=== PATIENT | male | born 1990 | race Caucasian/White ===

== ENCOUNTER 2016-12-03 17:38 | Emergency (ER) | payer OTHER ==
[~2016-12-03] VITALS: Ht 170.2 cm; Wt 88.5 kg
[2016-12-03] MEDS ORDERED: ASPIRIN 325 MG TABLET ONE (18:16)
[2016-12-03] MEDS ORDERED: OLANZAPINE 5 MG/TAB.RAPDIS ONE (18:16)
[2016-12-03 18:29] LABS: BASOPHILS % (AUTO) 0.6 % (0.0-2.0); DIFF TOTAL % 100 %; HEMATOCRIT 48 % (39-51); HEMOGLOBIN 16.4 g/dL (13.5-17.5); LYMPHOCYTES # (AUTO) 0.6 /CMM (0.8-4.8); MEAN CORPUSCULAR HEMOGLOBIN 32 PG (26.0-33.0); MEAN CORPUSCULAR HGB CONC 35 g/dl (31.0-36.0); MEAN CORPUSCULAR VOLUME 92 fL (80-96); MONOCYTES # (AUTO) 0.9 /CMM (0.1-1.30); MONOCYTES % (AUTO) 11.2 % (2.0-12.0); NEUTROPHILS # (AUTO) 6.2 /CMM (1.8-8.9); NEUTROPHILS % (AUTO) 80.2 % (43.0-81.0); PLATELET COUNT (AUTO) 208 /CMM (150-450); RED BLOOD CELL COUNT(AUTO) 5.18 MIL/uL (4.5-6.0); WHITE BLOOD COUNT (AUTO) 7.7 K/uL (4.3-11.0)
[2016-12-03] MEDS ORDERED: ASPIRIN 325 MG TABLET PO ONE (18:30)
[2016-12-03] MEDS ORDERED: OLANZAPINE 5 MG/TAB.RAPDIS PO ONE (18:30)
[2016-12-03 18:45] LABS: ANION GAP 12 (5-14); CALCIUM, SERUM 9.5 mg/dL (8.5-10.1); CARBON DIOXIDE 30 mmol/L (21-32); CHLORIDE 105 mmol/L (98-107); CREATININE 0.9 mg/dL (0.6-1.3); GFR 102 mL/min (>60); GLUCOSE 122 mg/dL (74-106); POTASSIUM 4.4 mmol/L (3.5-5.1); SODIUM SERUM 143 mmol/L (136-145); UREA NITROGEN, BLOOD 9 mg/dL (7-18)
[2016-12-03 18:47] LABS: TROPONIN I < 0.017 ng/mL (0.00-0.056)
[2016-12-03 18:50] LABS: ALANINE AMINOTRANSFERASE 39 U/L (12-78); ALBUMIN 4.5 g/dL (3.4-5.0); ASPARTATE AMINOTRANSFERASE 21 U/L (15-37); BILIRUBIN,DIRECT 0.2 mg/dL (0.0-0.2); BILIRUBIN,TOTAL 1.1 mg/dL (0.2-1.0); INDIRECT BILIRUBIN 0.9 mg/dL (0.0-1.1); TOTAL PROTEIN, SERUM 8.6 g/dL (6.4-8.2)
[2016-12-03 18:52] LABS: ACETAMINOPHEN < 2 ug/ml (10-30)
[2016-12-03 18:53] LABS: THYROID STIMULATING HORMONE 0.965 uIU/mL (0.358-3.74)
[2016-12-03] MEDS ORDERED: DIAZEPAM 5 MG TABLET ONE (18:54)
[2016-12-03] MEDS ORDERED: DIAZEPAM 10 MG TABLET PO ONE (19:00)
[2016-12-03 19:31] LABS: VALPROIC ACID 36 ug/mL (50-100)
[2016-12-03] MEDS ORDERED: LORAZEPAM INJ 2 MG/ML VIAL ONE (20:13)
[2016-12-03] MEDS ORDERED: LORAZEPAM INJ 2 MG/ML VIAL IM ONE (21:00)
[2016-12-03 21:02] VITALS: BP 142/84
== END 2016-12-03 21:03 | disposition home or self-care (01) ==
LOC: ER 17:40
DX: R07.9 Chest pain, unspecified (principal); F29 Unspecified psychosis not due to a substance or known physiological condition; F32.9 Major depressive disorder, single episode, unspecified; F20.0 Paranoid schizophrenia; R44.0 Auditory hallucinations
CPT/HCPCS: 36415; 71010; 80048; 80076; 80164; 84443; 84484; 85025; 93005; 96372; 99285; A4606; G0480 ×2; J2060; Z7610; G6039-TC

== ENCOUNTER 2016-12-05 04:45 | Emergency (ER) | payer OTHER ==
[~2016-12-05] VITALS: Ht 182.9 cm; Wt 110.7 kg
[2016-12-05] MEDS ORDERED: OLANZAPINE 10 MG VIAL IM ONE ×2 (05:05→05:30)
[2016-12-05] MEDS ORDERED: WATER FOR INJECTION,STERILE 10 ML ONE (05:06)
[2016-12-05] MEDS ORDERED: LORAZEPAM INJ 2 MG/ML VIAL ONE (05:30)
[2016-12-05 05:59] LABS: BASOPHILS % (AUTO) 0.2 % (0.0-2.0); DIFF TOTAL % 100 %; EOSINOPHILS % (AUTO) 0.1 % (0.0-6.0); HEMATOCRIT 45 % (39-51); HEMOGLOBIN 15.4 g/dL (13.5-17.5); LYMPHOCYTES % (AUTO) 11.4 % (20.0-44.0); MEAN CORPUSCULAR HEMOGLOBIN 32 PG (26.0-33.0); MEAN CORPUSCULAR HGB CONC 34 g/dl (31.0-36.0); MEAN CORPUSCULAR VOLUME 92 fL (80-96); MONOCYTES % (AUTO) 11.1 % (2.0-12.0); NEUTROPHILS # (AUTO) 6.9 /CMM (1.8-8.9); NEUTROPHILS % (AUTO) 77.2 % (43.0-81.0); PLATELET COUNT (AUTO) 186 /CMM (150-450); RED BLOOD CELL COUNT(AUTO) 4.88 MIL/uL (4.5-6.0); WHITE BLOOD COUNT (AUTO) 8.9 K/uL (4.3-11.0)
[2016-12-05] MEDS ORDERED: LORAZEPAM INJ 2 MG/ML VIAL IM ONE (06:00)
[2016-12-05 06:07] LABS: ANION GAP 10 (5-14); CALCIUM, SERUM 8.8 mg/dL (8.5-10.1); CARBON DIOXIDE 30 mmol/L (21-32); CHLORIDE 108 mmol/L (98-107); CREATININE 0.9 mg/dL (0.6-1.3); GFR 102 mL/min (>60); GLUCOSE 94 mg/dL (74-106); POTASSIUM 3.9 mmol/L (3.5-5.1); SODIUM SERUM 144 mmol/L (136-145); UREA NITROGEN, BLOOD 16 mg/dL (7-18)
[2016-12-05 06:14] LABS: ALANINE AMINOTRANSFERASE 40 U/L (12-78); ALBUMIN 4.2 g/dL (3.4-5.0); ASPARTATE AMINOTRANSFERASE 32 U/L (15-37); BILIRUBIN,DIRECT 0.2 mg/dL (0.0-0.2); INDIRECT BILIRUBIN 0.8 mg/dL (0.0-1.1); TOTAL PROTEIN, SERUM 7.9 g/dL (6.4-8.2)
[2016-12-05 06:16] LABS: ACETAMINOPHEN 0 ug/ml (10-30); SALICYLATE 0.3 mg/dL (2.8-20.0)
[2016-12-05 07:32] LABS: KETONES,URINE NEGATIVE (NEGATIVE); LEUKOCYTE ESTERASE ,URINE NEGATIVE (NEGATIVE); PH,URINE 6.5 (5.0-8.0)
[2016-12-05 07:38] LABS: ADD UA MICROSCOPIC NO
[2016-12-05 07:44] LABS: CANNABINOID, URINE NEGATIVE (NEGATIVE); PHENCYCLIDINE SCREEN,URINE NEGATIVE (NEGATIVE)
[2016-12-05] MEDS ORDERED: VALPROIC ACID 250 MG/5 ML UDC PO ONE (10:00)
[2016-12-05] MEDS ORDERED: risperiDONE LIQUID 1 MG/ML ML PO ONE (10:00)
[2016-12-05] MEDS ORDERED: VALPROIC ACID 250 MG/5 ML UDC ONE (10:01)
[2016-12-05] MEDS ORDERED: risperiDONE 1 MG TABLET ONE (10:01)
[2016-12-05 13:48] VITALS: BP 118/70
== END 2016-12-05 14:01 ==
LOC: ER 04:47
DX: R45.1 Restlessness and agitation (principal); F20.0 Paranoid schizophrenia; Z91.14 Patient's other noncompliance with medication regimen
CPT/HCPCS: 36415; 80048; 80076; 80305; 80329; 81001; 85025; 96372 ×2; 99285; G0480 ×2; J2060; J3490; 81000-TC; G6039-TC

== ENCOUNTER 2016-12-10 02:02 | Emergency (ER) | payer OTHER ==
[~2016-12-10] VITALS: Ht 177.8 cm; Wt 104.3 kg
[2016-12-10 02:08] VITALS: BP 141/60
[2016-12-10] MEDS ORDERED: OLANZAPINE 10 MG VIAL IM ONE ×3 (02:18→02:30)
--- NOTE | 2016-12-10 02:28 | NUR ---
medicated pt as ordered
== END 2016-12-10 03:03 | disposition home or self-care (01) ==
LOC: ER 02:05
DX: R45.1 Restlessness and agitation (principal); F20.0 Paranoid schizophrenia
CPT/HCPCS: A4606; J3490; Z7610

== ENCOUNTER 2017-03-13 22:33 | Emergency (ER) | payer OTHER ==
[~2017-03-13] VITALS: Ht 172.7 cm; Wt 81.6 kg
[2017-03-13 23:45] VITALS: BP 139/72
--- NOTE | 2017-03-14 01:58 | NUR ---
NOT IN LOBBY WHEN CALLED FOR ROOM ASSIGNMENT
--- NOTE | 2017-03-14 02:28 | NUR ---
STILL NOT IN LOBBY.
== END 2017-03-14 02:29 | disposition left against medical advice (07) ==
LOC: ER 22:37
DX: Z53.21 Procedure and treatment not carried out due to patient leaving prior to being seen by health care provider (principal)
CPT/HCPCS: A4606; Z7610

== ENCOUNTER 2017-03-14 22:13 | Emergency (ER) | payer OTHER ==
[~2017-03-14] VITALS: Ht 182.9 cm; Wt 90.7 kg
[2017-03-14 22:20] VITALS: BP 128/67
== END 2017-03-14 22:54 | disposition home or self-care (01) ==
LOC: ER 22:16
DX: J02.0 Streptococcal pharyngitis (principal); F41.9 Anxiety disorder, unspecified; F20.9 Schizophrenia, unspecified
CPT/HCPCS: 99283; A4606; Z7610

== ENCOUNTER 2017-03-19 22:36 | Emergency (ER) | payer OTHER ==
[~2017-03-19] VITALS: Ht 175.3 cm; Wt 90.7 kg
[2017-03-19 23:07] VITALS: BP 121/73
--- NOTE | 2017-03-19 23:19 | NUR ---
TIAN ALPINE GUIDE AT BEDSIDE TO JESSI TSANG.
== END 2017-03-19 23:40 | disposition home or self-care (01) ==
LOC: ER 22:36
DX: J32.9 Chronic sinusitis, unspecified (principal); F20.0 Paranoid schizophrenia; F41.9 Anxiety disorder, unspecified
CPT/HCPCS: A4606; Z7502; Z7610

== ENCOUNTER 2017-06-23 21:12 | Emergency (ER) | payer OTHER ==
[~2017-06-23] VITALS: Ht 182.9 cm; Wt 90.7 kg
--- NOTE | 2017-06-23 22:00 | NUR ---
TO BED 8 A 27 YO MALE PT STATES HE IS HEARING VOICES AND THE VOICES ARE TELLING HIM HIS FAMILY DOESNT LOVE HIM AND CANT STOP CRYING. PATIENT DENIES SI/HI. ALERT RESPONSIVE. VSS. NAD NOTED. BREATHING EVEN AND UNLABORED. SAFETY AND COMFORT MEASURES IN PLACE. PARENTS AT BEDSIDE.
[2017-06-23 22:20] LABS: BASOPHILS # (AUTO) 0.1 /CMM (0.0-0.2); BASOPHILS % (AUTO) 0.6 % (0.0-2.0); EOSINOPHILS % (AUTO) 0.1 % (0.0-6.0); HEMATOCRIT 49 % (39-51); HEMOGLOBIN 16.7 g/dL (13.5-17.5); LYMPHOCYTES # (AUTO) 1.2 /CMM (0.8-4.8); LYMPHOCYTES % (AUTO) 12.5 % (20.0-44.0); MEAN CORPUSCULAR HEMOGLOBIN 31 PG (26.0-33.0); MEAN CORPUSCULAR HGB CONC 34 g/dl (31.0-36.0); MEAN CORPUSCULAR VOLUME 91 fL (80-96); MONOCYTES % (AUTO) 10.9 % (2.0-12.0); NEUTROPHILS % (AUTO) 75.9 % (43.0-81.0); PLATELET COUNT (AUTO) 207 /CMM (150-450); RDW COEFFICIENT OF VARIATION 13.1 (11.5-15.0); RED BLOOD CELL COUNT(AUTO) 5.36 MIL/uL (4.5-6.0); WHITE BLOOD COUNT (AUTO) 9.2 K/uL (4.3-11.0)
[2017-06-23 22:25] LABS: CARBON DIOXIDE 25 mmol/L (21-32); CHLORIDE 103 mmol/L (98-107); CREATININE 0.8 mg/dL (0.6-1.3); GLUCOSE 115 mg/dL (74-106); POTASSIUM 3.5 mmol/L (3.5-5.1); SODIUM SERUM 135 mmol/L (136-145); UREA NITROGEN, BLOOD 13 mg/dL (7-18)
[2017-06-23 22:36] LABS: ALANINE AMINOTRANSFERASE 48 U/L (12-78); ALBUMIN 4.3 g/dL (3.4-5.0); ALCOHOL, BLOOD < 3 mg/dL (0-0); ALKALINE PHOSPHATASE 75 U/L (46-116); ASPARTATE AMINOTRANSFERASE 23 U/L (15-37); BILIRUBIN,DIRECT 0.1 mg/dL (0.0-0.2); BILIRUBIN,TOTAL 0.6 mg/dL (0.2-1.0); TOTAL PROTEIN, SERUM 8.3 g/dL (6.4-8.2)
[2017-06-23 22:37] LABS: ACETAMINOPHEN 0 ug/ml (10-30); SALICYLATE < 0.2 mg/dL (2.8-20.0)
--- NOTE | 2017-06-24 01:00 | NUR ---
[facility] COLLECTED VIA CLEAN CATCH AND CALLED LAB FOR DIRECTOR CLINICAL DATA.
[2017-06-24 01:09] LABS: APPEARANCE,URINE CLEAR (CLEAR); BILIRUBIN,URINE NEGATIVE (NEGATIVE); BLOOD, URINE NEGATIVE Ery/uL (NEGATIVE); COLOR,URINE YELLOW (YELLOW); KETONES,URINE NEGATIVE (NEGATIVE); LEUKOCYTE ESTERASE ,URINE NEGATIVE (NEGATIVE); NITRITE, URINE NEGATIVE (NEGATIVE); PROTEIN,URINE NEGATIVE (NEGATIVE); UGLUCOSE NEGATIVE (NEGATIVE); UROBILINOGEN,URINE 0.2 EU/dL (0.2)
--- NOTE | 2017-06-24 01:39 | NUR ---
SABRINA ARREDONDO LCSW CALLED FOR EVAL.
--- NOTE | 2017-06-24 02:20 | NUR ---
ART CAPILLA, LOGISTICS SYSTEM ENGINEER, AT BEDSIDE TO EVALUATE PATIENT.
--- NOTE | 2017-06-24 02:40 | NUR ---
Patient discharged to home in stable condition. Written and verbal after care instructions given. Patient verbalizes understanding of instruction. Patient is ambulatory with steady gait, accompanied by family. No further complaints.
[2017-06-24 02:42] VITALS: BP 128/74
== END 2017-06-24 02:42 | disposition home or self-care (01) ==
LOC: ER 21:16
DX: F20.0 Paranoid schizophrenia (principal); F39 Unspecified mood [affective] disorder; F41.9 Anxiety disorder, unspecified
CPT/HCPCS: 36415; 80048-TC; 80076-TC; 80305; 81000-TC; 85025-TC; A4606; G0480; Z7610

== ENCOUNTER 2017-07-09 13:01 | Emergency (ER) | payer OTHER ==
[~2017-07-09] VITALS: Ht 170.2 cm; Wt 120.7 kg
--- NOTE | 2017-07-09 13:10 | NUR ---
BIB RA102 FROM HOME C/O NAUSEA SINCE AM. PATIENT ALERT, BREATHING EVEN AND UNLABORED. NO SOB. VITALS STABLE. SAFETY AND COMFORT MEASURES IN PLACE. AWAITING MD ORDERS.
[2017-07-09] MEDS ORDERED: ONDANSETRON 4 MG TAB.RAPDIS ONE (13:13)
--- NOTE | 2017-07-09 13:15 | NUR ---
patient medicated per md orders.
[2017-07-09] MEDS ORDERED: ONDANSETRON 4 MG TAB.RAPDIS SL ONE (13:30)
[2017-07-09 13:42] LABS: EOSINOPHILS % (AUTO) 0.5 % (0.0-6.0); HEMATOCRIT 47 % (39-51); HEMOGLOBIN 15.9 g/dL (13.5-17.5); LYMPHOCYTES # (AUTO) 0.7 /CMM (0.8-4.8); LYMPHOCYTES % (AUTO) 8.1 % (20.0-44.0); MEAN CORPUSCULAR HEMOGLOBIN 31 PG (26.0-33.0); MEAN CORPUSCULAR HGB CONC 34 g/dl (31.0-36.0); MEAN CORPUSCULAR VOLUME 92 fL (80-96); MONOCYTES # (AUTO) 0.5 /CMM (0.1-1.30); MONOCYTES % (AUTO) 6.3 % (2.0-12.0); NEUTROPHILS # (AUTO) 7.3 /CMM (1.8-8.9); NEUTROPHILS % (AUTO) 85.1 % (43.0-81.0); PLATELET COUNT (AUTO) 182 /CMM (150-450); RDW COEFFICIENT OF VARIATION 13.2 (11.5-15.0); RED BLOOD CELL COUNT(AUTO) 5.15 MIL/uL (4.5-6.0); WHITE BLOOD COUNT (AUTO) 8.6 K/uL (4.3-11.0)
[2017-07-09 13:52] LABS: CALCIUM, SERUM 8.7 mg/dL (8.5-10.1); CARBON DIOXIDE 26 mmol/L (21-32); CHLORIDE 105 mmol/L (98-107); CREATININE 0.8 mg/dL (0.6-1.3); GLUCOSE 135 mg/dL (74-106); POTASSIUM 3.9 mmol/L (3.5-5.1); SODIUM SERUM 138 mmol/L (136-145); UREA NITROGEN, BLOOD 14 mg/dL (7-18)
[2017-07-09 13:58] LABS: ALANINE AMINOTRANSFERASE 52 U/L (12-78); ALBUMIN 3.9 g/dL (3.4-5.0); ALCOHOL, BLOOD < 3 mg/dL (0-0); ALKALINE PHOSPHATASE 73 U/L (46-116); ASPARTATE AMINOTRANSFERASE 24 U/L (15-37); BILIRUBIN,DIRECT 0.1 mg/dL (0.0-0.2); BILIRUBIN,TOTAL 0.6 mg/dL (0.2-1.0); TOTAL PROTEIN, SERUM 7.7 g/dL (6.4-8.2)
[2017-07-09 13:59] LABS: ACETAMINOPHEN 0 ug/ml (10-30)
--- NOTE | 2017-07-09 14:26 | NUR ---
Social service consult received from Dr. Haro who requested for JW to inquire with pt. and his mother if they have the appropriate mental health resources. JW met with pt. and his mother bedside with Sudanese speaking clarifier operator to assist. Pt. was lying in bed and did not speak at all to SW. Pt. is developmentally delayed and is receiving [facility] services at home. Pt's mother stated that pt. is linked to mental health services at [facility] located on [facility] and [facility] in [place]. Pt's psychiatrist is Dr. Alexey Ramirez at [facility]. According to the mother, pt. had an appointment on 06/24/17 and his medications Risperidone and Lorazepam were increased, however they do not appear to be helping. Pt. continues to have auditory hallucinations that state nobody likes him. Mother also states he has been crying more frequently. JW encouraged pt's mother to contact his psychiatrist and schedule an appointment to see him right away. Pt's next appointment in on July 24, 2017. JW also informed pt's mother to take pt. to [facility] emergency room if pt. is in crisis. Pt's mother informed JW she did take pt. there last week, however pt. was not considered to be a danger to self or others and was not placed on a 5150 hold. Mother to follow up with pt's psychiatrist at [facility].
[2017-07-09 14:50] LABS: BILIRUBIN,URINE Negative (NEGATIVE); BLOOD, URINE Negative Ery/uL (NEGATIVE); KETONES,URINE Trace (NEGATIVE); LEUKOCYTE ESTERASE ,URINE Negative (NEGATIVE); NITRITE, URINE Negative (NEGATIVE); PH,URINE 6.5 (5.0-8.0); PROTEIN,URINE 30 mg/dl (NEGATIVE); UGLUCOSE Negative (NEGATIVE)
[2017-07-09 14:51] LABS: APPEARANCE,URINE Hazy (CLEAR); COLOR,URINE Dark Yellow (YELLOW)
[2017-07-09 14:54] LABS: BACTERIA,URINE None seen /HPF (None Seen); MUCUS,URINE Rare /LPF (None Seen); SQUAMOUS EPITHELIAL CELL,UR Few /HPF (None Seen); WBC,URINE 0-3 /HPF (0-3)
[2017-07-09 15:19] VITALS: BP 117/86
--- NOTE | 2017-07-09 15:20 | NUR ---
Patient discharged to home in stable condition. Written and verbal after care instructions given. Patient verbalizes understanding of instruction.
== END 2017-07-09 15:20 | disposition home or self-care (01) ==
LOC: ER 13:02
DX: R07.89 Other chest pain (principal); F32.9 Major depressive disorder, single episode, unspecified; F20.0 Paranoid schizophrenia; F41.9 Anxiety disorder, unspecified
CPT/HCPCS: 36415; 71010; 80048; 80076; 80305; 80329; 81001; 84484; 85025; 93005; 99285; A4606; G0480 ×2; Q0162; Z7610; 81000-TC

== ENCOUNTER 2019-02-11 18:05 | Emergency (ER) ==
[~2019-02-11] VITALS: Ht 180.3 cm; Wt 128.8 kg
--- NOTE | 2019-02-11 18:25 | NUR ---
BIB RA81 FOR SUICIDAL THOUGHTS, PT STS HE'S HEARING VOICES TO HARM HIMSELF. PLANS OF " DRINKING A LOT OF PILLS ". -HI. PT IS AMBULATORY, VSS, RR EVEN AND UNLABORED. SUICIDE PRECAUTIONS IMPLEMENTED. PARENTS AT BEDSIDE. READY FOR EVAL.
[2019-02-11] MEDS ORDERED: LORAZEPAM 1 MG TABLET PO ONE ×2 (18:30→23:00)
[2019-02-11 18:45] LABS: BASOPHILS % (AUTO) 0.5 % (0.0-2.0); EOSINOPHILS % (AUTO) 0.3 % (0.0-6.0); HEMATOCRIT 43 % (39-51); LYMPHOCYTES # (AUTO) 0.8 /CMM (0.8-4.8); LYMPHOCYTES % (AUTO) 9.2 % (20.0-44.0); MEAN CORPUSCULAR HGB CONC 35 g/dl (31.0-36.0); MEAN CORPUSCULAR VOLUME 91 fL (80-96); MONOCYTES # (AUTO) 0.7 /CMM (0.1-1.30); MONOCYTES % (AUTO) 7.8 % (2.0-12.0); NEUTROPHILS # (AUTO) 7.3 /CMM (1.8-8.9); NEUTROPHILS % (AUTO) 82.2 % (43.0-81.0); PLATELET COUNT (AUTO) 201 /CMM (150-450); RED BLOOD CELL COUNT(AUTO) 4.69 MIL/uL (4.5-6.0); WHITE BLOOD COUNT (AUTO) 8.9 K/uL (4.3-11.0)
[2019-02-11] MEDS ORDERED: LORAZEPAM 1 MG TABLET ONE ×2 (18:46→22:43)
[2019-02-11] MEDS ORDERED: DIVA-78 PO (18:52)
[2019-02-11] MEDS ORDERED: LORA1TAB PO (18:55)
[2019-02-11] MEDS ORDERED: OLAN10TA3 PO (18:55)
[2019-02-11] MEDS ORDERED: HYDR-3028 PO (18:55)
[2019-02-11 19:03] LABS: ALANINE AMINOTRANSFERASE 43 U/L (12-78); ALBUMIN 3.7 g/dL (3.4-5.0); ALCOHOL, BLOOD < 3 mg/dL (0-0); ALKALINE PHOSPHATASE 74 U/L (46-116); ASPARTATE AMINOTRANSFERASE 23 U/L (15-37); BILIRUBIN,DIRECT 0.1 mg/dL (0.0-0.2); BILIRUBIN,TOTAL 0.6 mg/dL (0.2-1.0); CALCIUM, SERUM 8.4 mg/dL (8.5-10.1); CARBON DIOXIDE 26 mmol/L (21-32); CHLORIDE 105 mmol/L (98-107); GLUCOSE 124 mg/dL (74-106); SALICYLATE 5.7 mg/dL (2.8-20.0); SODIUM SERUM 140 mmol/L (136-145); TOTAL PROTEIN, SERUM 7.9 g/dL (6.4-8.2); UREA NITROGEN, BLOOD 14 mg/dL (7-18)
[2019-02-11 19:04] LABS: ACETAMINOPHEN < 2 ug/ml (10-30)
[2019-02-11 19:42] LABS: APPEARANCE,URINE Clear (CLEAR); BILIRUBIN,URINE Negative (NEGATIVE); BLOOD, URINE Negative Ery/uL (NEGATIVE); COLOR,URINE Yellow (YELLOW); KETONES,URINE Negative (NEGATIVE); LEUKOCYTE ESTERASE ,URINE Negative (NEGATIVE); NITRITE, URINE Negative (NEGATIVE); PH,URINE 7.5 (5.0-8.0); PROTEIN,URINE Negative (NEGATIVE); UGLUCOSE Negative (NEGATIVE); UROBILINOGEN,URINE 0.2 EU/dL (0.2)
--- NOTE | 2019-02-11 20:07 | NUR ---
PT RESTING COMFORTABLY IN BED. NO COMPLAINTS AT THIS TIME. WILL CONT TO MONITOR.
--- NOTE | 2019-02-11 22:19 | NUR ---
PT CRYING, STATING HE'S HEARING VOICES TELLING HIM TO CHOKE HIMSELF. PER SITTER, PT PLACED HIS HANDS AROUND HIS NECK. REASSURED PT THAT WE ARE TAKING CARE OF HIM AND WAITING FOR TRANSPORT TO COME AND TAKE HIM TO [facility] FOR FURTHER TREATMENT. WILL CONT TO MONITOR.
[2019-02-11] MEDS ORDERED: ACETAMINOPHEN ES 500 MG TABLET ONE (22:47)
--- NOTE | 2019-02-11 22:54 | NUR ---
PT GIVEN MEDS AND JUICE. OFFERED TELEVISION TO DISTRACT FROM VOICES. PT AGREED
[2019-02-11] MEDS ORDERED: ACETAMINOPHEN ES 500 MG TABLET PO ONE (23:00)
--- NOTE | 2019-02-11 23:14 | NUR ---
AMBULNZ ETA 45 MINS.
[2019-02-11] MEDS ORDERED: LIDOCAINE VISCOUS 2% UD 15 ML UDC ONE (23:23)
[2019-02-11] MEDS ORDERED: MAG HYDROX/AL HYDROX/SIMETH 30 ML UDC ONE ×2 (23:23→23:25)
[2019-02-11] MEDS ORDERED: LIDOCAINE VISCOUS 2% UD 15 ML UDC MM ONE (23:30)
[2019-02-11] MEDS ORDERED: MAG HYDROX/AL HYDROX/SIMETH 30 ML UDC PO ONE (23:30)
[2019-02-11] MEDS ORDERED: OLANZAPINE 5 MG TABLET PO ONE (23:30)
--- NOTE | 2019-02-11 23:31 | NUR ---
ASSUMED CARE OF PT. PT'S PARENTS ARE AT THE BEDSIDE. PT WAS C/O ABD PAIN. NEW MEDICATION ORDERED AND GIVEN.
[2019-02-11] MEDS ORDERED: OLANZAPINE 5 MG TABLET ONE (23:34)
--- NOTE | 2019-02-11 23:39 | NUR ---
REPORT GIVEN TO ARNLUFO HADLEY AT [facility]
[2019-02-12] VITALS: BP 121/75
--- NOTE | 2019-02-12 00:04 | NUR ---
PT TRANSFERED OUT VIA AMBULANCE TO [facility].
== END 2019-02-12 00:12 ==
LOC: ER 18:07
DX: R45.851 Suicidal ideations (principal); F20.0 Paranoid schizophrenia; R07.89 Other chest pain; Z79.899 Other long term (current) drug therapy
CPT/HCPCS: 36415; 71045; 80048; 80076; 80305; 80307; 80329; 81001; 84484; 85025; 85730; 93005; 99285; G0480; 81000-TC

== ENCOUNTER 2019-04-02 17:41 | Emergency (ER) | payer OTHER ==
[~2019-04-02] VITALS: Ht 180.3 cm; Wt 132.0 kg
[~2019-04-02 17:41] MED LIST: DIVA-78 PO; HYDR-3028 PO; LORA1TAB PO; OLAN10TA3 PO
--- NOTE | 2019-04-02 18:15 | NUR ---
PT [id number] FRM HOME, AUDITORY HALLUCINATION TELLING HIM TO "KILL HIMSELF." PT IS AAOC1, NOT IN RESPIRATORY DISTRESS, KEPT RESTED AND COMFORTABLE, WILL CONTINUE TO MONITOR.
--- NOTE | 2019-04-02 18:19 | NUR ---
SEEN AND EXAMINED BY .
[2019-04-02] MEDS ORDERED: LORAZEPAM INJ 2 MG/ML VIAL IM ONE (18:30)
[2019-04-02] MEDS ORDERED: LORAZEPAM INJ 2 MG/ML VIAL ONE (18:30)
[2019-04-02 18:41] LABS: BASOPHILS # (AUTO) 0.1 /CMM (0.0-0.2); BASOPHILS % (AUTO) 0.7 % (0.0-2.0); EOSINOPHILS % (AUTO) 0.4 % (0.0-6.0); HEMATOCRIT 44 % (39-51); HEMOGLOBIN 15.3 g/dL (13.5-17.5); LYMPHOCYTES # (AUTO) 1.1 /CMM (0.8-4.8); LYMPHOCYTES % (AUTO) 12.7 % (20.0-44.0); MEAN CORPUSCULAR HGB CONC 35 g/dl (31.0-36.0); MEAN CORPUSCULAR VOLUME 92 fL (80-96); MONOCYTES % (AUTO) 11.8 % (2.0-12.0); NEUTROPHILS # (AUTO) 6.2 /CMM (1.8-8.9); NEUTROPHILS % (AUTO) 74.4 % (43.0-81.0); PLATELET COUNT (AUTO) 205 /CMM (150-450); RED BLOOD CELL COUNT(AUTO) 4.76 MIL/uL (4.5-6.0); WHITE BLOOD COUNT (AUTO) 8.3 K/uL (4.3-11.0)
[2019-04-02 18:46] LABS: CALCIUM, SERUM 8.7 mg/dL (8.5-10.1); CARBON DIOXIDE 26 mmol/L (21-32); CHLORIDE 105 mmol/L (98-107); CREATININE 0.9 mg/dL (0.6-1.3); GLUCOSE 109 mg/dL (74-106); SODIUM SERUM 140 mmol/L (136-145); UREA NITROGEN, BLOOD 15 mg/dL (7-18)
[2019-04-02 18:52] LABS: ALANINE AMINOTRANSFERASE 45 U/L (12-78); ALBUMIN 3.5 g/dL (3.4-5.0); ALCOHOL, BLOOD < 3 mg/dL (0-0); ALKALINE PHOSPHATASE 81 U/L (46-116); ASPARTATE AMINOTRANSFERASE 23 U/L (15-37); BILIRUBIN,DIRECT 0.1 mg/dL (0.0-0.2); BILIRUBIN,TOTAL 0.5 mg/dL (0.2-1.0); TOTAL PROTEIN, SERUM 7.8 g/dL (6.4-8.2)
[2019-04-02 18:53] LABS: ACETAMINOPHEN < 5 ug/ml (10-30); SALICYLATE 1.2 mg/dL (2.8-20.0)
[2019-04-02] MEDS ORDERED: OLANZAPINE 10 MG VIAL IM ONE ×2 (18:53→19:00)
--- NOTE | 2019-04-02 19:58 | NUR ---
PT RESTING IN BED, NAD NOTED. WILL CONTINUE TO MONITOR. PT STATES UNABLE TO URINATE AT THE MOMENT.
--- NOTE | 2019-04-02 20:27 | NUR ---
PT AMBULATORY WITH STEADY GAIT TO RESTROOM. URINE SAMPLE OBTAINED AND SENT TO LAB.
--- NOTE | 2019-04-02 21:48 | NUR ---
Pt resting in bed, NAD noted. Will continue to monitor.
--- NOTE | 2019-04-02 22:28 | NUR ---
CALLED ART FOR EVAL, 1 HOUR ETA
--- NOTE | 2019-04-02 23:10 | NUR ---
Psych Eval at bedside.
[2019-04-03 00:54] VITALS: BP 145/80
--- NOTE | 2019-04-03 00:54 | NUR ---
Patient discharged to home in stable condition. Written and verbal after care instructions given. Patient verbalizes understanding of instruction.
== END 2019-04-03 01:10 | disposition home or self-care (01) ==
LOC: ER 17:41
DX: F23 Brief psychotic disorder (principal); R62.50 Unspecified lack of expected normal physiological development in childhood; F60.0 Paranoid personality disorder; F41.9 Anxiety disorder, unspecified; R45.1 Restlessness and agitation
CPT/HCPCS: 36415; 80048; 80076; 80307; 80329; 85025; 96372 ×2; 99284; J2060; J3490; 80305; G0480

== ENCOUNTER 2019-04-04 02:27 | Emergency (ER) | payer OTHER ==
[~2019-04-04] VITALS: Ht 180.3 cm; Wt 132.0 kg
--- NOTE | 2019-04-04 02:59 | NUR ---
TO BED 6 AMBULATORY C/O AUDITORY HALLUCINATION BUT UNABLE TO STATES WHAT THE VOICES ARE TELLING HIM AND SI WITH PLAN TO HANG HIMSELF. PT AAOX3 NO ACUTE DISTRESS NOTED, RESP EVEN AND UNLABORED. PT CALM AND COOPERATIVE AT THIS TIME. PT MOM REMAINS AT BEDSIDE.
--- NOTE | 2019-04-04 03:01 | NUR ---
PT UNABLE TO PROVIODE URINE SAMPLE AT THIS TIME.
--- NOTE | 2019-04-04 03:01 | NUR ---
SILVER RECOVERY OPERATOR AT BEDSIDE FOR BLOOD DRAW.
[2019-04-04 03:26] LABS: CALCIUM, SERUM 8.5 mg/dL (8.5-10.1); CARBON DIOXIDE 28 mmol/L (21-32); CHLORIDE 104 mmol/L (98-107); GLUCOSE 120 mg/dL (74-106); POTASSIUM 3.8 mmol/L (3.5-5.1); SODIUM SERUM 139 mmol/L (136-145); UREA NITROGEN, BLOOD 18 mg/dL (7-18)
[2019-04-04] MEDS ORDERED: OLANZAPINE 5 MG TABLET PO ONE (03:30)
[2019-04-04 03:32] LABS: ALANINE AMINOTRANSFERASE 48 U/L (12-78); ALBUMIN 3.4 g/dL (3.4-5.0); ALCOHOL, BLOOD < 3 mg/dL (0-0); ALKALINE PHOSPHATASE 86 U/L (46-116); ASPARTATE AMINOTRANSFERASE 25 U/L (15-37); BILIRUBIN,DIRECT 0.1 mg/dL (0.0-0.2); BILIRUBIN,TOTAL 0.6 mg/dL (0.2-1.0); TOTAL PROTEIN, SERUM 7.6 g/dL (6.4-8.2)
[2019-04-04 03:33] LABS: ACETAMINOPHEN 0 ug/ml (10-30); SALICYLATE 0.8 mg/dL (2.8-20.0)
[2019-04-04 03:34] LABS: BASOPHILS # (AUTO) 0.1 /CMM (0.0-0.2); BASOPHILS % (AUTO) 0.6 % (0.0-2.0); EOSINOPHILS % (AUTO) 0.6 % (0.0-6.0); HEMATOCRIT 42 % (39-51); HEMOGLOBIN 14.6 g/dL (13.5-17.5); LYMPHOCYTES # (AUTO) 1.4 /CMM (0.8-4.8); LYMPHOCYTES % (AUTO) 15.5 % (20.0-44.0); MEAN CORPUSCULAR HGB CONC 35 g/dl (31.0-36.0); MEAN CORPUSCULAR VOLUME 91 fL (80-96); MONOCYTES % (AUTO) 10.2 % (2.0-12.0); NEUTROPHILS # (AUTO) 6.8 /CMM (1.8-8.9); NEUTROPHILS % (AUTO) 73.1 % (43.0-81.0); PLATELET COUNT (AUTO) 219 /CMM (150-450); WHITE BLOOD COUNT (AUTO) 9.4 K/uL (4.3-11.0)
[2019-04-04] MEDS ORDERED: OLANZAPINE 5 MG TABLET ONE (03:55)
--- NOTE | 2019-04-04 04:01 | NUR ---
PT CRYING, STATES "I DONT WANT TO BE HERE ANYMORE, I WANT TO ". COMFORT MEASURES DONE. ER MD MADE AWARE WITH ORDERS RECEIVED. WILL CARRY OUT ORDERS. PT MOM REMAINS AT BEDSIDE.
[2019-04-04] MEDS ORDERED: LORAZEPAM INJ 2 MG/ML VIAL ONE (04:03)
--- NOTE | 2019-04-04 04:10 | NUR ---
PT MEDICATED ORDERED.
[2019-04-04] MEDS ORDERED: LORAZEPAM INJ 2 MG/ML VIAL IM ONE (04:30)
--- NOTE | 2019-04-04 04:56 | NUR ---
PT SITTING UP IN BED, CALM AND COOPERATIVE. PT MOM REMAINS AT BEDSIDE.
--- NOTE | 2019-04-04 06:14 | NUR ---
URINE SAMPLE COLLECTED AND SENT TO LAB.
[2019-04-04 07:10] LABS: APPEARANCE,URINE Clear (CLEAR); BILIRUBIN,URINE Negative (NEGATIVE); BLOOD, URINE Negative Ery/uL (NEGATIVE); COLOR,URINE Yellow (YELLOW); KETONES,URINE Trace (NEGATIVE); LEUKOCYTE ESTERASE ,URINE Negative (NEGATIVE); NITRITE, URINE Negative (NEGATIVE); PROTEIN,URINE Negative (NEGATIVE); UGLUCOSE Negative (NEGATIVE); UROBILINOGEN,URINE 0.2 EU/dL (0.2)
[2019-04-04 07:16] LABS: BACTERIA,URINE None seen /HPF (None Seen); RBC,URINE 0-2 /HPF (0-2); SQUAMOUS EPITHELIAL CELL,UR Few /HPF (None Seen); WBC,URINE 0-3 /HPF (0-3)
--- NOTE | 2019-04-04 08:27 | NUR ---
The patient was seen and evaluated at bedside. He is awake and alert, resting comfortably pending PET evaluation.
--- NOTE | 2019-04-04 08:30 | NUR ---
CALLED ART FOR EVAL
--- NOTE | 2019-04-04 11:14 | NUR ---
PT IS MEDICALLY AND PSYCH CLEARED. DISCHARGE TO HOME TO MOTHER IN STABLE CONDITION.
[2019-04-04 11:15] VITALS: BP 135/84
== END 2019-04-04 11:16 | disposition home or self-care (01) ==
LOC: ER 02:32
DX: F29 Unspecified psychosis not due to a substance or known physiological condition (principal); R45.851 Suicidal ideations; F20.9 Schizophrenia, unspecified; F41.9 Anxiety disorder, unspecified; F84.0 Autistic disorder; R62.50 Unspecified lack of expected normal physiological development in childhood; F60.0 Paranoid personality disorder
CPT/HCPCS: 36415; 80048; 80076; 80307; 80329; 81001; 85025; 96372; 99284; J2060; 80305; 81000-TC; G0480

== ENCOUNTER 2019-04-06 15:40 | Emergency (ER) | payer OTHER ==
[~2019-04-06] VITALS: Ht 177.8 cm; Wt 108.9 kg
--- NOTE | 2019-04-06 16:02 | NUR ---
bibra 860 c/o auditory hallucination with a plan to choke himself. STATES VOICES ARE TELLING HIM THAT PEOPLE WILL HARM HIM AND NO ONE WILL HELP HIM. DENIES HI. APPEARS UPSET. FAMILY AT BEDSIDE. BLOOD DRAWN AND SENT TO STAT LAB. DR WU AT BEDSIDE FOR EVAL.
[2019-04-06 16:12] LABS: BASOPHILS # (AUTO) 0.1 /CMM (0.0-0.2); BASOPHILS % (AUTO) 0.7 % (0.0-2.0); EOSINOPHILS % (AUTO) 0.2 % (0.0-6.0); HEMATOCRIT 43 % (39-51); HEMOGLOBIN 14.8 g/dL (13.5-17.5); LYMPHOCYTES # (AUTO) 0.8 /CMM (0.8-4.8); LYMPHOCYTES % (AUTO) 9.6 % (20.0-44.0); MEAN CORPUSCULAR HGB CONC 35 g/dl (31.0-36.0); MEAN CORPUSCULAR VOLUME 92 fL (80-96); MONOCYTES # (AUTO) 0.9 /CMM (0.1-1.30); NEUTROPHILS # (AUTO) 6.8 /CMM (1.8-8.9); NEUTROPHILS % (AUTO) 79.5 % (43.0-81.0); PLATELET COUNT (AUTO) 238 /CMM (150-450); RED BLOOD CELL COUNT(AUTO) 4.63 MIL/uL (4.5-6.0); WHITE BLOOD COUNT (AUTO) 8.6 K/uL (4.3-11.0)
--- NOTE | 2019-04-06 16:17 | NUR ---
PT UNABLE TO URINATE AT THIS TIME. PROVIDED PT WITH URINAL AND SPECIMEN CUP
[2019-04-06 16:20] LABS: CALCIUM, SERUM 8.5 mg/dL (8.5-10.1); CARBON DIOXIDE 24 mmol/L (21-32); CHLORIDE 105 mmol/L (98-107); GLUCOSE 123 mg/dL (74-106); POTASSIUM 3.8 mmol/L (3.5-5.1); SODIUM SERUM 140 mmol/L (136-145); UREA NITROGEN, BLOOD 17 mg/dL (7-18)
[2019-04-06 16:26] LABS: ALANINE AMINOTRANSFERASE 42 U/L (12-78); ALBUMIN 3.6 g/dL (3.4-5.0); ALCOHOL, BLOOD < 3 mg/dL (0-0); ALKALINE PHOSPHATASE 89 U/L (46-116); ASPARTATE AMINOTRANSFERASE 18 U/L (15-37); BILIRUBIN,DIRECT 0.1 mg/dL (0.0-0.2); BILIRUBIN,TOTAL 0.4 mg/dL (0.2-1.0); SALICYLATE 1.1 mg/dL (2.8-20.0); TOTAL PROTEIN, SERUM 7.8 g/dL (6.4-8.2)
[2019-04-06 16:27] LABS: ACETAMINOPHEN 0 ug/ml (10-30)
--- NOTE | 2019-04-06 16:36 | NUR ---
PT APPEARS IN DISTRESS, HYPERVENTILATING AND WALKING AROUND. SAYING THAT SOMEONE IS GOING TO HURT HIM.
--- NOTE | 2019-04-06 16:36 | NUR ---
TOGETHER WITH EMILY, WAS ABLE TO ENCOURAGE PT BACK TO BED
[2019-04-06 16:57] LABS: BAND % (MANUAL) 5 % (0.0-5.0); EOSINOPHILS % (MANUAL) 1 % (0-4); LYMPHOCYTES % (MANUAL) 8 % (16-48); MONOCYTES % (MANUAL) 9 % (0-11.0); NEUTROPHILS % (MANUAL) 77 (42-76)
--- NOTE | 2019-04-06 17:38 | NUR ---
URINE SENT TO STAT LAB
[2019-04-06 17:46] LABS: APPEARANCE,URINE Clear (CLEAR); BILIRUBIN,URINE Negative (NEGATIVE); BLOOD, URINE Negative Ery/uL (NEGATIVE); COLOR,URINE Yellow (YELLOW); KETONES,URINE 15 (NEGATIVE); LEUKOCYTE ESTERASE ,URINE Negative (NEGATIVE); NITRITE, URINE Negative (NEGATIVE); PH,URINE 5.5 (5.0-8.0); PROTEIN,URINE Negative (NEGATIVE); UGLUCOSE Negative (NEGATIVE); UROBILINOGEN,URINE 0.2 EU/dL (0.2)
[2019-04-06 18:05] LABS: BACTERIA,URINE Rare /HPF (None Seen); RBC,URINE 0-2 /HPF (0-2); SQUAMOUS EPITHELIAL CELL,UR Rare /HPF (None Seen); WBC,URINE 0-2 /HPF (0-3)
--- NOTE | 2019-04-06 18:34 | NUR ---
CALLED ARTIFICIAL TEETH INSPECTOR (EDUAR), DID NOT ANSWER, LEFT VOICEMAIL.
--- NOTE | 2019-04-06 18:48 | NUR ---
PT RESTING COMFORTABLY IN BED. VSS, WILL CONT TO MONITOR
--- NOTE | 2019-04-06 18:50 | NUR ---
EDUAR CALLED, 1 HOUR ETA
[2019-04-06] MEDS ORDERED: ONDANSETRON 4 MG TAB.RAPDIS ONE (19:14)
--- NOTE | 2019-04-06 19:26 | NUR ---
ASSISTED PT TO RESTROOM
[2019-04-06] MEDS: ONDANSETRON 4 MG TAB.RAPDIS SL ONE (19:27)
--- NOTE | 2019-04-06 19:45 | NUR ---
NUMERICAL CONTROL PROGRAMMER EDUAR AT BEDSIDE FOR EVAL.
[2019-04-06] MEDS ORDERED: OLANZAPINE 5 MG TABLET ONE (19:58)
[2019-04-06] MEDS ORDERED: OLANZAPINE 10 MG VIAL IM ONE (20:04)
[2019-04-06] MEDS: OLANZAPINE 10 MG VIAL IM ONE (20:12)
[2019-04-06] MEDS: OLANZAPINE 5 MG TABLET PO ONE (20:40)
[2019-04-06] MEDS ORDERED: LORAZEPAM INJ 2 MG/ML VIAL ONE (21:11)
[2019-04-06] MEDS: LORAZEPAM INJ 2 MG/ML VIAL IV ONE (21:15)
--- NOTE | 2019-04-06 21:18 | NUR ---
Patient discharged to home in stable condition. Written and verbal after care instructions given. Patient verbalizes understanding of instruction.
[2019-04-06 21:32] VITALS: BP 116/78
== END 2019-04-06 21:18 | disposition home or self-care (01) ==
LOC: ER 15:40
DX: F20.9 Schizophrenia, unspecified (principal); F41.9 Anxiety disorder, unspecified; F60.0 Paranoid personality disorder; Z88.1 Allergy status to other antibiotic agents; Z79.899 Other long term (current) drug therapy
CPT/HCPCS: 36415; 80048; 80076; 80307; 80329; 81001; 85025; 96372 ×2; 99284; J2060; J3490; Q0162; 80305; 81000-TC; G0480